=== PATIENT | female | born 1955 | race Caucasian/White ===

== ENCOUNTER 2016-06-20 08:54 | Inpatient (IN) | payer OTHER ==
[~2016-06-20] VITALS: Ht 165.1 cm; Wt 64.3 kg
[~2016-06-20 08:54] MED LIST: IBUP200T5 PO
[2016-06-20] MEDS ORDERED: LACTATED RINGERS 1,000 ML IV SCH (10:54)
[2016-06-20 10:56] VITALS: BP 121/77
[2016-06-20] MEDS ORDERED: VANCOMYCIN 1,100 MG in SODIUM CHLORIDE 0.9% 250 ML IV ONE (11:00)
[2016-06-20] MEDS ORDERED: VANCOMYCIN PER PHARMACY MC PRN (11:00)
[2016-06-20] MEDS ORDERED: EPINEPHRINE 1 MG/ML, 1ML ONE (11:19)
[2016-06-20] MEDS ORDERED: KETOROLAC 60 MG/2 ML ONE (11:19)
[2016-06-20] MEDS ORDERED: TRANEXAMIC ACID 100 MG/ML, 10ML ONE ×4 (11:19)
[2016-06-20] MEDS ORDERED: ROPIvacaine/PF 0.2%, 20 ML ONE (11:19)
[2016-06-20] MEDS ORDERED: SODIUM CHLORIDE 0.9% 50 ML ONE (11:19)
[2016-06-20] MEDS ORDERED: BACITRACIN 50,000 UNIT ONE (11:20)
[2016-06-20] MEDS ORDERED: OxyconTIN ER 10 MG TAB.ER ONE (11:24)
[2016-06-20] MEDS ORDERED: OxyconTIN ER 10 MG TAB.ER PO SCH (11:30)
[2016-06-20] MEDS ORDERED: OxyconTIN ER 10 MG TAB.ER PO ONE (11:30)
[2016-06-20] MEDS ORDERED: FENTANYL PF 100 MCG/2ML ONE (11:33)
[2016-06-20] MEDS ORDERED: MIDAZOLAM 1 MG/ML, 2ML ONE (11:33)
[2016-06-20] MEDS ORDERED: CEFAZOLIN 1,000 MG ONE (11:58)
[2016-06-20] MEDS ORDERED: ONDANSETRON 2MG/ML, 2ML ONE (11:58)
[2016-06-20] MEDS ORDERED: PHENYLEPHRINE 10 MG/ML ONE (11:58)
[2016-06-20] MEDS ORDERED: PROPOFOL 10 MG/ML, 50ML ONE (11:58)
[2016-06-20] MEDS ORDERED: LIDOCAINE 1%, 20ML ONE (11:58)
[2016-06-20] MEDS ORDERED: MEPERIDINE/PF 25MG/0.5ML IVPush PRN (13:00)
[2016-06-20] MEDS ORDERED: PROMETHAZINE 25 MG/ML, 1ML IV PRN (13:00)
[2016-06-20] MEDS ORDERED: FENTANYL PF 100 MCG/2ML IV PRN (13:00)
[2016-06-20] MEDS ORDERED: HYDROmorphone 1 MG/ML, 1ML IV PRN ×2 (13:00→14:30)
[2016-06-20] MEDS ORDERED: OXYcodone 5 MG/5 ML ORAL.SOL UDC PO PRN (13:00)
[2016-06-20] MEDS ORDERED: ACETAMINOPHEN 325 MG TABLET PO PRN (13:00)
[2016-06-20] MEDS ORDERED: MEPERIDINE/PF 25MG/0.5ML ONE (14:16)
[2016-06-20] MEDS ORDERED: DIAZEPAM 5 MG TABLET PO PRN (14:30)
[2016-06-20] MEDS ORDERED: BISACODYL 10 MG SUPP PR PRN (14:30)
[2016-06-20] MEDS: OXYcodone IR 5MG TABLET PO SCH ×3 (14:30→22:29)
[2016-06-20] MEDS ORDERED: MAGNESIUM HYDROXIDE 8%, 30ML UDC PO PRN (14:30)
[2016-06-20] MEDS ORDERED: HYDROcodone/APAP 10/325 MG TABLET PO PRN (14:30)
[2016-06-20] MEDS ORDERED: DIPHENHYDRAMINE 50 MG CAPSULE PO PRN (14:30)
[2016-06-20] MEDS ORDERED: PROMETHAZINE 12.5 MG SUPP PR PRN (14:30)
[2016-06-20] MEDS ORDERED: ONDANSETRON 2MG/ML, 2ML IV PRN (14:30)
[2016-06-20] MEDS ORDERED: OXYcodone IR 5MG TABLET PO PRN (14:30)
[2016-06-20] MEDS ORDERED: SENNA/DOCUSATE TABLET PO PRN (14:30)
[2016-06-20] MEDS ORDERED: ZOLPIDEM 5MG TABLET PO PRN (14:30)
[2016-06-20] MEDS ORDERED: ONDANSETRON 4 MG TABLET PO PRN (14:30)
[2016-06-20] MEDS: ACETAMINOPHEN 650 MG/20.3 ML UDC PO SCH ×3 (14:30→22:28)
[2016-06-20] MEDS ORDERED: PROMETHAZINE 25 MG/ML, 1ML IM PRN (14:30)
[2016-06-20] MEDS ORDERED: ALUMINUM/MAG/SIMETHICONE 30 ML UDC PO PRN (14:30)
[2016-06-20 15:45] VITALS: BP 106/73
[2016-06-20] MEDS ORDERED: SCOPOLAMINE PATCH, 1.5MG PATCH.TD72 TD SCH (16:00)
[2016-06-20] MEDS: D5%-0.45% NACL 1,000 ML IV SCH (17:20)
[2016-06-20] MEDS: ASPIRIN 325 MG TABLET EC PO SCH (17:20)
[2016-06-20] MEDS: TAMSULOSIN 0.4 MG CAP.ER.24H PO SCH (17:20)
[2016-06-20 19:50] VITALS: BP 111/58
[2016-06-20] MEDS: CEFAZOLIN PMX 1GM/50ML 50 ML IVPB SCH (21:26)
[2016-06-20] MEDS: PREGABALIN 75 MG CAPSULE PO SCH (21:29)
[2016-06-20] MEDS: DOCUSATE 100 MG CAPSULE PO SCH (21:29)
[2016-06-20 23:59] VITALS: BP 131/131
[2016-06-21] MEDS: D5%-0.45% NACL 1,000 ML IV SCH ×2 (00:33→08:34)
[2016-06-21] MEDS: OXYcodone IR 5MG TABLET PO SCH ×4 (02:30→11:35)
[2016-06-21] MEDS: ACETAMINOPHEN 650 MG/20.3 ML UDC PO SCH ×4 (02:30→11:35)
[2016-06-21 04:22] VITALS: BP 124/73
[2016-06-21] MEDS: ASPIRIN 325 MG TABLET EC PO SCH (05:11)
[2016-06-21] MEDS: CEFAZOLIN PMX 1GM/50ML 50 ML IVPB SCH (05:12)
[2016-06-21] MEDS ORDERED: DEXAMETHASONE 4 MG/ML, 1ML IVPush SCH (06:00)
[2016-06-21 07:49] VITALS: BP 112/66
[2016-06-21] MEDS: TAMSULOSIN 0.4 MG CAP.ER.24H PO SCH (08:35)
[2016-06-21] MEDS: DOCUSATE 100 MG CAPSULE PO SCH (08:35)
[2016-06-21] MEDS: PREGABALIN 75 MG CAPSULE PO SCH (08:35)
[2016-06-21] MEDS ORDERED: MULTIVITAMINS/MINERALS TABLET PO SCH (09:00)
[2016-06-21] MEDS ORDERED: VANCOMYCIN PMX 1GM/200ML 200 ML IVPB SCH (10:30)
[2016-06-21 13:52] VITALS: BP 103/56
[2016-06-21] MEDS ORDERED: KETOROLAC 30 MG/1 ML IV SCH (14:30)
[2016-06-21 14:39] VITALS: BP 104/66
[2016-06-21] MEDS ORDERED: OXYC-302 PO (15:12)
[2016-06-21] MEDS ORDERED: TRAM50TA2 PO (15:15)
[2016-06-21] MEDS ORDERED: ASPI325T4 PO (15:15)
[2016-06-21] MEDS ORDERED: DIAZ5TAB PO (15:16)
[2016-06-21] MEDS ORDERED: DOCU-30 PO (15:17)
== END 2016-06-21 15:35 | disposition home or self-care (01) | DRG 470 ==
LOC: ORIP 10:07 → 4NOR 15:19 → DCLOUNGE 06-21 14:49
PROVIDERS: ADMIT Orthopaedic Surgery; ATTEND Orthopaedic Surgery
PROC: 0SR90JZ Replacement of Right Hip Joint with Synthetic Substitute, Open Approach (ICD-10-PCS; principal; 2016-06-20 12:00)
DX: M16.11 Unilateral primary osteoarthritis, right hip (principal); M87.9 Osteonecrosis, unspecified
CPT/HCPCS: 36415; 72170; 85014; 85018; 86850; 86900; C1713; J0171; J0690; J1100; J1170; J1885; J2175; J2250; J2405; J2704; J2795; J3010; J3370; J3490; C1776; J2370; J7050; J7120